=== PATIENT | female | born 1975 | race African-American/Black ===

== ENCOUNTER 2023-01-05 20:27 | Emergency (ER) | payer SELFPAY ==
--- OUTSIDE RECORDS SUMMARY | 2023-01-05 20:43 | XMS REPORT | Continuity of Care Document ---
:1975 Author Organization [facility] t Address [address] [place] [address] Care Team Providers Name Role Phone Unavailable Unavailable Unavailable Problems Condition Condition Condition Status Onset Resolution Last Treating Co mments Source Name Details Category Date Date Treatment Clinician Date Cough Cough Disease Active [facility] 00:00: 00 Allergies, Adverse Reactions, Alerts This patient has no known allergies or adverse reactions. Social History Social Habit Start Date Stop Date Quantity Comments Source Gender identity [facility] Sexual orientation [facility] Sex Assigned At [birth year] [facility] 00:00:00 00:00:00 Medications This patient has no known medications. Procedures This patient has no known procedures. Plan of Care Planned Activity Planned Date Details Comments Source Future Scheduled Test 2023-04-24 00:00:00 IMM Influenza [facility] Seasonal (>/= 19 yrs) [code = IMM Influenza Seasonal (>/= 19 yrs)] Future Scheduled Test 2023-04-24 00:00:00 IMM Influenza [facility] Seasonal (>/= 19 yrs) [code = IMM Influenza Seasonal (>/= 19 yrs)] Future Scheduled Test 2017 00:00:00 Breast Cancer [facility] (Yearly) [code = Breast Cancer Scrn (Yearly)] Future Scheduled Test 2017 00:00:00 Breast Cancer [facility] (Yearly) [code = Breast Cancer Scrn (Yearly)] Future Scheduled Test 2007 00:00:00 Screening for [facility] malignant neoplasm of cervix (procedure) [code = 492787153] Future Scheduled Test 2007 00:00:00 Screening for [facility] malignant neoplasm of cervix (procedure) [code = 736127706] Future Scheduled Test 2007 00:00:00 Screening for [facility] malignant neoplasm of cervix (procedure) [code = 513339507] Future Scheduled Test 2007 00:00:00 Screening for [facility] malignant neoplasm of cervix (procedure) [code = 152332786] Future Scheduled Test 1978-01-03 00:00:00 COVID-19 Vaccine (#1) [facility] [code = COVID-19 Vaccine (#1)] Future Scheduled Test 1978-01-03 00:00:00 COVID-19 Vaccine (#1) [facility] [code = COVID-19 Vaccine (#1)] Results This patient has no known results.
[2023-01-05] MEDS ORDERED: LIDOCAINE 1% MPF 5 ML VIAL ONE (21:20)
[2023-01-05] MEDS ORDERED: LIDOCAINE 1% W/EPI 1:100,000 50 ML MDV ONE (21:21)
--- NOTE | 2023-01-05 22:07 | RAD REPORT ---
EXAM DESCRIPTION: CT - Head Brain Wo Cont - 01/05/2023 9:41 pm CLINICAL HISTORY: HEADACHE COMPARISON: No comparisons TECHNIQUE: Noncontrast head CT images ad were obtained without IV contrast. Multiplanar reformats we re generated and reviewed. All CT scans are performed using dose optimization technique as appropriate and may include automated exposure control or mA/KV adjustment according to patient size. FINDINGS: No intracranial hemorrhage, mass, or edema. Midline structures are unremarkable. Normal ventricular caliber for age. Aguilar-white matter differentiation is preserved, without evidence of acute infarct. No abnormal extra- axial fluid collections. Mastoid air cells and visualized portions of the paranasal sinuses are clear. No acute bony findings. Soft tissue swelling about the left parietal scalps, with a hypo dermal 12 millimeter rounded soft ti ssue density, which may represent a small collection, possibly an infected sebaceous cyst. IMPRESSION: No evidence of an acute intracranial process. Soft tissue swelling with a hypodermal collection along the left parietal scalp as above.
--- NOTE | 2023-01-05 23:08 | EDPHYS ---
Physician Documentation [facility] Name: Betty Elias Age: 47 yrs Sex: Female : 1975 Arrival Date: 01/05/2023 Time: 20:27 Bed 9 Private MD: ED Physician Maurizio Hernandes HPI: 01/05 21:30 This 47 yrs old Black Female presents to ER via Ambulatory with complaints of KNOT ON cp HEAD. 21:30 The patient complains of pain to the left side of the back of head. The patient cp describes the headache as aching. 21:30 Onset: The symptoms/episode began/occurred 3 day(s) ago. Associated signs and symptoms: cp Pertinent positives: swelling. Patient reports pain and swelling to left side of head since removing hair sam 3 days ago. 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 - Social history:: Smoking status: Patient reports the use of cigarette tobacco products, denies chronic smoking, but will smoke occasionally, Reported history of juuling and/or vaping. ROS: 21:35 Constitutional: Negative for body aches, chills, fever, poor PO intake. cp 21:35 Eyes: Negative for injury, pain, redness, and discharge. cp 21:35 Cardiovascular: Negative for chest pain. 21:35 Abdomen/GI: Negative for abdominal pain, nausea, vomiting, and diarrhea. 21:35 Skin: Positive for abscess, of the left side of the back of head. 21:35 Neuro: Positive for headache. 21:35 All other systems are negative. Exam: 21:30 Constitutional: The patient appears in no acute distress, alert, awake, non-toxic, well cp developed, well nourished, uncomfortable. 21:30 Head/face: Noted is swelling, that is mild, of the left side of the back of head, cp tenderness, that is moderate, of the left side of the back of head. 21:30 Eyes: Periorbital structures: appear normal, Sclera: no appreciated abnormality, Lids and lashes: appear normal, bilaterally. 21:30 ENT: External ear(s): are unremarkable, Nose: is normal, Mouth: Lips: moist, Oral mucosa: moist, Posterior pharynx: is normal, airway is patent, no erythema, no exudate. 21:30 Chest/axilla: Inspection: normal. 21:30 Cardiovascular: Rate: normal. 21:30 Respiratory: the patient does not display signs of respiratory distress, Respirations: normal. 21:30 Abdomen/GI: Exam negative for discomfort, distension, guarding, Inspection: abdomen appears normal. 21:30 Skin: abscess, that is small, of the left side of the back of head, with fluctuance. Vital Signs: 20:40 BP 123 / 89 LA Sitting (auto/reg); Pulse 68 MON; Resp 18 S; Temp 98.4(O); Pulse Ox 100% ds4 on R/A; Weight 56.7 kg (R); Height 5 ft. 4 in. (R); Pain 9/10; 20:47 Weight 56.7 kg; Height 5 ft. 4 in. ; mb9 23:21 Pulse 64; Pulse Ox 100% on R/A; kd3 20:47 Body Mass Index 21.46 (56.70 kg, 162.56 cm) mb9 20:40 Pain Scale: Adult ds4 Procedures: 23:10 I \T\ D: Incision and drainage was performed for an abscess of the left side of the back cp of head Prepped with Betadine, Anesthetized with 3 ml's 1% Lidocaine w/ Epi. Incised with #11 blade. Drained small amount purulent fluid. Packed with iodoform gauze, the patient tolerated the procedure well. MDM: 20:54 Patient medically screened. cp 23:07 Data reviewed: vital signs, nurses notes, radiologic studies, CT scan. cp 23:07 Differential diagnosis: migraine, contusion, abscess, cellulitis. I considered the cp following discharge prescriptions or medication management in the emergency department Medications were administered in the Emergency Department. See MAR. Counseling: I had a detailed discussion with the patient and/or guardian regarding: the historical points, exam findings, and any diagnostic results supporting the discharge/admit diagnosis, radiology results, to return to the emergency department if symptoms worsen or persist or if there are any questions or concerns that arise at home. 01/05 21:10 Order name: CT Head Brain wo Cont; Complete Time: 22:10 cp 01/05 22:11 Interpretation: Report reviewed. cp 01/05 21:10 Order name: I\T\D Setup; Complete Time: 21:16 cp 01/05 23:05 Order name: Wound dressing; Complete Time: 23:21 cp Administered Medications: 22:45 Drug: Lidocaine-Epinephrine Infiltration -1%: (1:100,000) 10 ml Volume: 20 ml; Route: mb9 Infiltration; 23:22 Follow up: Response: No adverse reaction kd3 23:21 Drug: Cephalexin PO 500 mg Route: PO; kd3 23:22 Follow up: Response: No adverse reaction kd3 23:21 Drug: Trimethoprim-Sulfamethoxazole PO (160 mg-800 mg (DS) 1 tablet Route: PO; kd3 23:22 Follow up: Response: No adverse reaction kd3 23:21 Drug: Ibuprofen PO 600 mg Route: PO; kd3 23:22 Follow up: Response: No adverse reaction kd3 Disposition Summary: 01/05/23 23:07 Discharge Ordered Location: Home cp Problem: new cp Symptoms: have improved cp Condition: Stable cp Diagnosis - Cutaneous abscess of head [any part, except face] cp Followup: cp - With: Emergency Department - When: 48 Hours - Reason: Wound Recheck Discharge Instructions: - Discharge Summary Sheet cp - Skin Abscess cp - Incision and Drainage cp Forms: - Medication Reconciliation Form cp - Thank You Letter cp - Antibiotic Education cp - Prescription Opioid Use cp Prescriptions: - Cephalexin 500 mg Oral Capsule - take 1 capsule by ORAL route every 6 hours for 10 days; 40 capsule; Refills: 0, cp Product Selection Permitted - Diclofenac Sodium 75 mg Oral tablet,delayed release (DR/EC) - take 1 tablet by ORAL route 2 times per day; 20 tablet; Refills: 0, Product cp Selection Permitted - Bactrim DS 800-160 mg Oral Tablet - take 1 tablet by ORAL route every 12 hours for 10 days; 20 tablet; Refills: 0, cp Product Selection Permitted Signatures: Dispatcher [employer] EDFranc Robert PA PA cp Doucette, Kyli RN RN kd3 Melissa Vega RN RN mb9
--- NOTE | 2023-01-05 23:08 | ER ---
[facility] Notes [facility] Name: [facility] Eli[facility] Age: 47 yrs Sex: Female : 1975 Arrival Date: 01/05/2023 Time: 20:27 Bed 9 Private MD: Diagnosis: Cutaneous abscess of head [any part, except face] Presentation: 01/05 20:47 Chief complaint: Patient states: "3 days ago i undid my sam and went to put a wig on mb9 but I have this knot on my left upper head. It hurts really bad and aches. It's really tender". Coronavirus screen: Vaccine status: Patient reports being unvaccinated. Ebola Screen: No symptoms or risks identified at this time. Initial Sepsis Screen: Does the patient meet any 2 criteria? No. Patient's initial sepsis screen is negative. Does the patient have a suspected source of infection? No. Patient's initial sepsis screen is negative. Risk Assessment: Do you want to hurt yourself or someone else? Patient reports no desire to harm self or others. Onset of symptoms was January 05, 2023. 20:47 Method Of Arrival: Ambulatory mb9 20:47 Acuity: DAREN 4 mb9 Triage Assessment: 20:49 General: Appears in no apparent distress. Behavior is calm, cooperative. Pain: mb9 Complains of pain in scalp. Neuro: Level of Consciousness is awake, alert, obeys commands, Oriented to person, place, time, situation, Appropriate for age. Respiratory: Airway is patent Respiratory effort is even, unlabored, Respiratory pattern is regular, symmetrical. Derm: Skin is pink, warm \\T\\ dry. Musculoskeletal: Range of motion: intact in all extremities. 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 - Social history:: Smoking status: Patient reports the use of cigarette tobacco products, denies chronic smoking, but will smoke occasionally, Reported history of juuling and/or vaping. Screenin:51 [facility] ED Fall Risk Assessment (Adult) History of falling in the last 3 months, mb9 including since admission No falls in past 3 months (0 pts) Confusion or Disorientation No (0 pts) Intoxicated or Sedated No (0 pts) Impaired Gait No (0 pts) Mobility Assist Device Used No (0 pt) Altered Elimination No (0 pt) Score/Fall Risk Level 0 - 2 = Low Risk Oriented to surroundings, Maintained a safe environment, Educated pt \\T\\ family on fall prevention, incl call for assistance when getting out of bed. Abuse screen: Denies threats or abuse. Nutritional screening: No deficits noted. Tuberculosis screening: No symptoms or risk factors identified. Assessment: 20:51 Reassessment: see triage assessment. mb9 Vital Signs: 20:40 BP 123 / 89 LA Sitting (auto/reg); Pulse 68 MON; Resp 18 S; Temp 98.4(O); Pulse Ox 100% ds4 on R/A; Weight 56.7 kg (R); Height 5 ft. 4 in. (R); Pain 9/10; 20:47 Weight 56.7 kg; Height 5 ft. 4 in. ; mb9 23:21 Pulse 64; Pulse Ox 100% on R/A; kd3 20:47 Body Mass Index 21.46 (56.70 kg, 162.56 cm) mb9 20:40 Pain Scale: Adult ds4 ED Course: 20:30 Patient arrived in ED. es 20:47 Melissa Vega, RN is Primary Nurse. mb9 20:48 Triage completed. mb9 20:48 Arm band placed on. mb9 20:51 Placed in gown. Bed in low position. Call light in reach. Side rails up X 1. Client mb9 placed on continuous cardiac and pulse oximetry monitoring. NIBP monitoring applied. 20:51 No provider procedures requiring assistance completed. mb9 20:54 Franc Dias PA is PHCP. cp 20:54 Maurizio Hernandes MD is Attending Physician. cp 21:43 CT Head Brain wo Cont In Process Unspecified. EDMS 23:22 Patient did not have IV access during this emergency room visit. kd3 Administered Medications: 22:45 Drug: Lidocaine-Epinephrine Infiltration -1%: (1:100,000) 10 ml Volume: 20 ml; Route: mb9 Infiltration; 23:22 Follow up: Response: No adverse reaction kd3 23:21 Drug: Cephalexin PO 500 mg Route: PO; kd3 23:22 Follow up: Response: No adverse reaction kd3 23:21 Drug: Trimethoprim-Sulfamethoxazole PO (160 mg-800 mg (DS) 1 tablet Route: PO; kd3 23:22 Follow up: Response: No adverse reaction kd3 23:21 Drug: Ibuprofen PO 600 mg Route: PO; kd3 23:22 Follow up: Response: No adverse reaction kd3 Medication: 20:51 VIS not applicable for this client. mb9 Outcome: 23:07 Discharge ordered by . kacie 23:22 Discharged to home ambulatory. kd3 23:22 Condition: stable 23:22 Discharge instructions given to patient, Instructed on discharge instructions, follow up and referral plans. Demonstrated understanding of instructions, follow-up care, medications, Prescriptions given X 3. 23:22 Patient left the ED. kd3 Signatures: Dispatcher [employer] Joy Linares Donovan ds4 Franc Dias PA PA cp Doucette, Kyli, RN RN kd3 Melissa Vega, RN RN mb9
[2023-01-05] MEDS ORDERED: IBUPROFEN 200 MG TAB PO ONE (23:24)
[2023-01-05] MEDS ORDERED: SMZ./TMP. 800/160 MG TABLET ONE (23:24)
[2023-01-05] MEDS ORDERED: CEPHALEXIN 250 MG CAP ONE (23:24)
[2023-01-05] MEDS ORDERED: IBUPROFEN 400 MG TAB ONE (23:24)
[2023-01-06 00:36] VITALS: O2SAT 100
[2023-01-06 00:37] VITALS: BP 123/89; TEMP 98.4
== END 2023-01-05 23:22 | disposition home or self-care (01) ==
LOC: ER 20:27
PROC: 0H90XZZ Drainage of Scalp Skin, External Approach (ICD-10-PCS; principal; 2023-01-05)
DX: L02.811 Cutaneous abscess of head [any part, except face] (principal)
CPT/HCPCS: 70450; 99283; J2001

== ENCOUNTER 2023-01-08 15:19 | Emergency (ER) | payer SELFPAY ==
--- OUTSIDE RECORDS SUMMARY | 2023-01-08 15:22 | XMS REPORT | Continuity of Care Document ---
:1975 Author Organization [facility] t Address [address] [place] [address] Care Team Providers Name Role Phone Unavailable Unavailable Unavailable Problems Condition Condition Condition Status Onset Resolution Last Treating Co mments Source Name Details Category Date Date Treatment Clinician Date Cough Cough Disease Active [facility] 00:00: 00 Allergies, Adverse Reactions, Alerts This patient has no known allergies or adverse reactions. Social History Social Habit Start Date Stop Date Quantity Comments Source Gender identity [facility] Sexual orientation [facility] Sex Assigned At [birth year] [facility] 00:00:00 00:00:00 Medications This patient has no known medications. Procedures This patient has no known procedures. Plan of Care Planned Activity Planned Date Details Comments Source Future Scheduled Test 2023-04-24 00:00:00 [facility] Seasonal (>/= 19 yrs) [code = IMM Influenza Seasonal (>/= 19 yrs)] Future Scheduled Test 2023-04-24 00:00:00 [facility] Seasonal (>/= 19 yrs) [code = IMM Influenza Seasonal (>/= 19 yrs)] Future Scheduled Test 2023-04-24 00:00:00 [facility] Influenza [facility] Seasonal (>/= 19 yrs) [code = IMM Influenza Seasonal (>/= 19 yrs)] Future Scheduled Test 2017 00:00:00 Breast Cancer [facility] (Yearly) [code = Breast Cancer Scrn (Yearly)] Future Scheduled Test 2017 00:00:00 Breast Cancer [facility] (Yearly) [code = Breast Cancer Scrn (Yearly)] Future Scheduled Test 2017 00:00:00 Breast Cancer Scrn [facility] (Yearly) [code = Breast Cancer Scrn (Yearly)] Future Scheduled Test 2007 00:00:00 Screening for [facility] malignant neoplasm of cervix (procedure) [code = 065817126] Future Scheduled Test 2007 00:00:00 Screening for [facility] malignant neoplasm of cervix (procedure) [code = 231839814] Future Scheduled Test 2007 00:00:00 Screening for [facility] malignant neoplasm of cervix (procedure) [code = 497049507] Future Scheduled Test 2007 00:00:00 Screening for [facility] malignant neoplasm of cervix (procedure) [code = 927794003] Future Scheduled Test 2007 00:00:00 Screening for [facility] malignant neoplasm of cervix (procedure) [code = 793261306] Future Scheduled Test 2007 00:00:00 Screening for [facility] malignant neoplasm of cervix (procedure) [code = 498660870] Future Scheduled Test 1978-01-03 00:00:00 COVID-19 Vaccine (#1) [facility] [code = COVID-19 Vaccine (#1)] Future Scheduled Test 1978-01-03 00:00:00 COVID-19 Vaccine (#1) [facility] [code = COVID-19 Vaccine (#1)] Future Scheduled Test 1978-01-03 00:00:00 COVID-19 Vaccine (#1) [facility] [code = COVID-19 Vaccine (#1)] Results This patient has no known results.
--- NOTE | 2023-01-08 15:37 | EDPHYS ---
Physician Documentation [facility] Name: Betty Elias Age: 47 yrs Sex: Female : 1975 Arrival Date: 01/08/2023 Time: 15:19 Bed 19 Private MD: ED Physician Hammad Chaudhary HPI: 01/08 15:34 This 47 yrs old Black Female presents to ER via Ambulatory with complaints of REMOVAL cp OF WOUND PACK. 15:35 Patient presents to ED for recheck of: abscess. The affected area is on the left scalp cp area. 15:35 Previous treatment: The patient was initially treated 3 day(s) ago, the care was cp rendered at [facility], Treatment type: The patient's original treatment included an I\T\D. Progress: The patient reports excellent improvement in the affected area. There has been resolution, improvement, or non-development of any drainage, fever, pain, redness or swelling. 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 - Social history:: Smoking status: Patient reports the use of cigarette tobacco products, denies chronic smoking, but will smoke occasionally. ROS: 15:35 All other systems are negative. cp Exam: 15:35 Constitutional: The patient appears in no acute distress, alert, awake, well developed, cp well nourished. 15:35 Skin: Wound recheck: Abscess: the wound has improved, decreased discharge, decreased pain, the packing is in place, scalp. Vital Signs: 15:24 BP 101 / 81; Pulse 64; Resp 18; Temp 97.9(TE); Pulse Ox 99% ; Weight 56.25 kg; Height 5 kr3 ft. 4 in. ; Pain 0/10; 15:24 Body Mass Index 21.28 (56.25 kg, 162.56 cm) kr3 15:24 Pain Scale: Adult kr3 MDM: 15:28 Patient medically screened. cp 15:36 Data reviewed: vital signs, nurses notes. cp 15:36 Counseling: I had a detailed discussion with the patient and/or guardian regarding: the cp historical points, exam findings, and any diagnostic results supporting the discharge/admit diagnosis, to return to the emergency department if symptoms worsen or persist or if there are any questions or concerns that arise at home. Administered Medications: No medications were administered Disposition: 17:48 Co-signature as Attending Physician, Hammad Chaudhary MD I reviewed the patient's care rn provided by the Advanced Practice Provider and agree with the diagnosis and treatment plan. Disposition Summary: 01/08/23 15:36 Discharge Ordered Location: Home cp Problem: new cp Symptoms: have improved cp Condition: Stable cp Diagnosis - Encounter for attention to dressings, sutures and drains cp Followup: cp - With: Emergency Department - When: As needed - Reason: Worsening of condition Discharge Instructions: - Discharge Summary Sheet cp - Incision and Drainage, Care After cp Forms: - Medication Reconciliation Form cp - Thank You Letter cp - Antibiotic Education cp - Prescription Opioid Use cp Signatures: Hammad Chaudhary MD MD rn Franc Dias PA PA cp Maureen Birch, RN RN kr3
--- NOTE | 2023-01-08 15:37 | ER ---
Nurse's Notes [facility] Name: Betty Elias Age: 47 yrs Sex: Female : 1975 Arrival Date: 01/08/2023 Time: 15:19 Bed 19 Private MD: Diagnosis: Encounter for attention to dressings, sutures and drains Presentation: 01/08 15:24 Chief complaint: Patient states: I need the packing removed from my head, it was placed kr3 on Tuesday. Coronavirus screen: Vaccine status: Patient reports being unvaccinated. Ebola Screen: Patient denies travel to an Ebola-affected area in the 21 days before illness onset. Initial Sepsis Screen: Does the patient meet any 2 criteria? No. Patient's initial sepsis screen is negative. Does the patient have a suspected source of infection? No. Patient's initial sepsis screen is negative. Risk Assessment: Do you want to hurt yourself or someone else? Patient reports no desire to harm self or others. Onset of symptoms was January 08, 2023. 15:24 Method Of Arrival: Ambulatory kr3 15:24 Acuity: DAREN 4 kr3 Triage Assessment: 15:27 General: Appears in no apparent distress. comfortable, Behavior is appropriate for age, kr3 anxious. Pain: Denies pain. EENT: No deficits noted. Neuro: Level of Consciousness is awake, alert, obeys commands. Neuro: Oriented to person, place, time, situation. Cardiovascular: Patient's skin is warm and dry. Respiratory: Airway is patent Respiratory effort is even, unlabored, Respiratory pattern is regular, symmetrical. GI: No signs and/or symptoms were reported involving the gastrointestinal system. : No signs and/or symptoms were reported regarding the genitourinary system. Derm: No signs and/or symptoms reported regarding the dermatologic system. Musculoskeletal: No signs and/or symptoms reported regarding the musculoskeletal system. 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 - Social history:: Smoking status: Patient reports the use of cigarette tobacco products, denies chronic smoking, but will smoke occasionally. Screenin:29 [facility] ED Fall Risk Assessment (Adult) History of falling in the last 3 months, sg5 including since admission. [facility] ED Fall Risk Assessment (Adult) History of falling in the last 3 months, including since admission No falls in past 3 months (0 pts). Abuse screen: Denies threats or abuse. Nutritional screening: No deficits noted. Tuberculosis screening: No symptoms or risk factors identified. Assessment: 15:29 General: Behavior is cooperative, appropriate for age. Pain: Denies pain. Neuro: Level sg5 of Consciousness is awake, alert, obeys commands, Oriented to person, place, time, situation, Appropriate for age. Cardiovascular: Capillary refill < 3 seconds Patient's skin is warm and dry. Respiratory: Airway is patent Respiratory effort is even, unlabored. GI: No signs and/or symptoms were reported involving the gastrointestinal system. : No signs and/or symptoms were reported regarding the genitourinary system. EENT: Reports top left head needs removal of wound packing. Derm: No signs and/or symptoms reported regarding the dermatologic system. Musculoskeletal: No signs and/or symptoms reported regarding the musculoskeletal system. Vital Signs: 15:24 BP 101 / 81; Pulse 64; Resp 18; Temp 97.9(TE); Pulse Ox 99% ; Weight 56.25 kg; Height 5 kr3 ft. 4 in. ; Pain 0/10; 15:24 Body Mass Index 21.28 (56.25 kg, 162.56 cm) kr3 15:24 Pain Scale: Adult kr3 ED Course: 15:20 Patient arrived in ED. jj6 15:26 Triage completed. kr3 15:27 Franc Dias PA is PHCP. cp 15:27 Hammad Chaudhary MD is Attending Physician. cp 15:27 Arm band placed on right wrist. Patient placed in an exam room, on a stretcher. kr3 15:28 Georgiana Feldman, BANDAR is Primary Nurse. sg5 15:29 Patient has correct armband on for positive identification. Bed in low position. Call sg5 light in reach. Valuables Left with patient. 15:29 No provider procedures requiring assistance completed. Patient did not have IV access sg5 during this emergency room visit. Administered Medications: No medications were administered Medication: 15:29 VIS not applicable for this client. sg5 Outcome: 15:29 Discharged to home ambulatory. sg5 15:29 Condition: good 15:29 Discharge instructions given to patient, Instructed on discharge instructions, follow up and referral plans. 15:36 Discharge ordered by . kacie 15:38 Patient left the ED. sg5 Signatures: Franc Dias PA PA cp Jeffries, Jennifer jj6 Maureen Birch RN RN kr3 Georgiana Feldman RN RN sg5
[2023-01-08 15:45] VITALS: BP 101/81; TEMP 97.9; O2SAT 99
== END 2023-01-08 15:38 | disposition home or self-care (01) ==
LOC: ER 15:19
DX: Z48.01 Encounter for change or removal of surgical wound dressing (principal)
CPT/HCPCS: 99282

== ENCOUNTER → 2023-08-28 | Emergency (ER) | payer SELFPAY ==
--- NOTE | 2023-08-28 16:49 | ER ---
Nurse's Notes [facility] Name: Betty Elias Age: 48 yrs Sex: Female : 1975 Arrival Date: 08/28/2023 Time: 14:32 Bed 9 Private MD: Diagnosis: Presentation: 08/28 15:00 Chief complaint: Body aches yesterday, sinus congestion and malaise today. Coronavirus hb screen: At this time, the client does not indicate any symptoms associated with coronavirus-19. Ebola Screen: No symptoms or risks identified at this time. Initial Sepsis Screen: Does the patient meet any 2 criteria? No. Patient's initial sepsis screen is negative. Does the patient have a suspected source of infection? No. Patient's initial sepsis screen is negative. Risk Assessment: Do you want to hurt yourself or someone else? Patient reports no desire to harm self or others. Onset of symptoms was August 27, 2023. 15:00 Method Of Arrival: Ambulatory hb 15:00 Acuity: DAREN 4 hb Historical: - Allergies: 15:01 No Known Allergies; hb - PMHx: 15:01 Hypothyroidism; hb 15:02 Hypertension; hb Vital Signs: 15:00 BP 115 / 92; Pulse 79; Resp 16; Temp 98.2(O); Pulse Ox 100% on R/A; Weight 50.8 kg; hb Height 5 ft. 4 in. ; Pain 0/10; 15:00 Body Mass Index 19.22 (50.80 kg, 162.56 cm) hb 15:00 Pain Scale: Adult hb ED Course: 14:35 Patient arrived in ED. mg5 14:37 [facility] snw 14:37 Jessica Sarabia MD is Attending Physician. snw 15:01 Triage completed. hb 15:02 Arm band placed on. hb Administered Medications: No medications were administered Outcome: 16:48 Patient left the ED. hb 17:44 Patient left the ED. snw Signatures: Alicia Foster FNP-C FNP-Csnw Alexia Brambila, RN RN Deanna Saucedo mg5
--- NOTE | 2023-08-28 17:45 | EDPHYS ---
Physician Documentation [facility] Name: Betty Elias Age: 48 yrs Sex: Female : 1975 Arrival Date: 08/28/2023 Time: 14:32 Bed 9 Private MD: ED Physician Historical: - Allergies: 08/28 15:01 No Known Allergies; hb - PMHx: 15:01 Hypothyroidism; hb 15:02 Hypertension; hb Vital Signs: 15:00 BP 115 / 92; Pulse 79; Resp 16; Temp 98.2(O); Pulse Ox 100% on R/A; Weight 50.8 kg; hb Height 5 ft. 4 in. ; Pain 0/10; 15:00 Body Mass Index 19.22 (50.80 kg, 162.56 cm) hb 15:00 Pain Scale: Adult hb MDM: 17:44 Medical screening is not applicable. snw Administered Medications: No medications were administered Disposition Summary: 08/28/23 16:48 Eloped Notes: Disposition: before being seen by provider hb Reason: (see nurse's notes) hb Discharge Instructions: - Discharge Summary Sheet hb Forms: - Work release form hb Signatures: Dispatcher [employer] EDAlicia Barrientos, REJI-C DISTRIBUTION COLLECTION OPERATOR-Csnw Alexia Brambila, RN RN hb
[2023-08-28 18:33] VITALS: BP 115/92; TEMP 98.2; O2SAT 100
== END ==
LOC: ER 14:32
DX: Z02.9 Encounter for administrative examinations, unspecified (principal)